=== PATIENT | female | born 1955 ===

== ENCOUNTER 2016-08-03 09:46 | Observation (INO) | payer MEDICAID ==
--- NOTE | 2016-08-03 10:07 | ED PDOC ---
HPI: Chest Pain Time Seen by Provider: 08/03/16 09:57 Chief Complaint (Nursing): Chest Pain Chief Complaint (Provider): Chest Pain History Per: Patient History/Exam Limitations: no limitations Onset/Duration Of Symptoms: Days Current Symptoms Are (Timing): Still Present Severity: Mild Quality: Pressure, "Pain" Associated Symptoms: Dyspnea. denies: Nausea Modifying Factors: None Exacerbating Factors: None Alleviating Factors: None Additional Complaint(s): Patient is a 60 year old female referred to ED from clinic for evaluation of chest pain. Patient states chest pain for 5 days, described as a pressure like pain, constant, worse with walking and associated with SOB. Patient denies nausea, vomiting, radiation of pain, leg swelling or palpations. Past Medical History Reviewed: Historical Data, Nursing Documentation, Vital Signs Vital Signs: Last Vital Signs Temp 98 F 08/03/16 09:54 Pulse 79 08/03/16 09:54 Resp 20 08/03/16 09:54 BP 150/86 08/03/16 09:54 Pulse Ox 98 08/03/16 10:09 - Medical History PMH: Diabetes, HTN, Hypercholesterolemia Denies: HIV, Chronic Kidney Disease - Surgical History Surgical History: No Surg Hx - Family History Family History: States: No Known Family Hx - Living Arrangements Living Arrangements: With Family - Home Medications Home Medications: Ambulatory Orders Medication Instructions Recorded Atorvastatin [Lipitor] 40 mg PO DAILY 01/22/16 Enalapril Maleate [Vasotec] 10 mg PO DAILY 01/22/16 Gabapentin [Neurontin] 300 mg PO TID 01/22/16 Metformin HCl [Glucophage] 1,000 mg PO BID 01/22/16 Omeprazole [Omeprazole] 20 mg PO DAILY 01/22/16 Atorvastatin [Lipitor] 40 mg PO HS #0 tab 01/23/16 Docusate [Colace] 100 mg PO DAILY #0 cap 01/23/16 Insulin Glargine, Recombina 60 unit SC HS #0 unit 01/23/16 [Lantus] Meclizine [Antivert] 25 mg PO TID #42 tab 01/23/16 Omeprazole 40 mg PO DAILY #30 capsule. 01/23/16 Ondansetron [Zofran] 4 mg PO Q8H #42 tab 01/23/16 - Allergies Allergies/Adverse Reactions: Allergies Allergy/AdvReac Type Severity Reaction Status Date / Time No Known Allergies Allergy Verified 01/22/16 06:20 LIS Risk Score for UA/NSTEMI - LIS Risk Score Age > 64: NO 3 or more CAD Risk Factors: YES Known CAD (Stenosis greater than 50%): NO Aspirin use in past 7 days: NO Severe Angina: YES EKG ST changes greater than 0.5mm: NO Positive Cardiac Marker: NO LIS Score: 2 Risk %: 8% Review of Systems ROS Statement: Except As Marked, All Systems Reviewed And Found Negative Constitutional: Negative for: Fever, Chills Cardiovascular: Positive for: Chest Pain. Negative for: Palpitations, Light Headedness Respiratory: Positive for: Shortness of Breath. Negative for: Cough Gastrointestinal: Negative for: Nausea, Vomiting Musculoskeletal: Negative for: Neck Pain Neurological: Negative for: Weakness, Numbness Physical Exam - Reviewed Nursing Documentation Reviewed: Yes Vital Signs Reviewed: Yes - Physical Exam Appears: Positive for: Non-toxic, No Acute Distress Skin: Positive for: Normal Color, Warm Eye Exam: Positive for: Normal appearance Neck: Positive for: Normal, Painless ROM, Supple Cardiovascular/Chest: Positive for: Regular Rate, Rhythm. Negative for: JVD, Murmur Respiratory: Positive for: Normal Breath Sounds. Negative for: Respiratory Distress Back: Positive for: Normal Inspection Extremity: Positive for: Normal ROM. Negative for: Pedal Edema, Calf Tenderness Neurologic/Psych: Positive for: Alert, Oriented. Negative for: Motor/Sensory Deficits - Laboratory Results Result Diagrams: 08/03/16 10:35 08/03/16 10:35 - ECG Interpretation Of ECG: NSR @ 77, no ST-T changes. O2 Sat by Pulse Oximetry: 98 (RA) Pulse Ox Interpretation: Normal - Radiology X-Ray: Read By Radiologist (No evidence of significant interval change compared to the previous exam.) - Progress ED Course And Treament: Pt administered ASA 325 mg PO and Nitropaste. Medical Decision Making Medical Decision Making: Time: 1000 Initial impression: Chest pain r/o ACS Initial plan: -- EKG -- CMP -- Troponin -- CBC -- PT/PTT -- CXR Scribe Attestation: Documented by Loreta Field acting as a scribe for Pamela Woodson MD MD Scribe Attestation: All medical record entries made by the Scribe were at my direction and personally dictated by me. I have reviewed the chart and agree that the record accurately reflects my personal performance of the history, physical exam, medical decision making, and the department course for this patient. I have also personally directed, reviewed, and agree with the discharge instructions and disposition. Disposition - Clinical Impression Clinical Impression: Chest pain - Patient ED Disposition Is Patient to be Admitted: Yes - Disposition Disposition Time: 11:19 Condition: STABLE - Pt Status Changed To: Hospital Disposition Of: Observation - POA Present On Arrival: None
[2016-08-03 10:45] LABS: BASO # 0.1 K/uL (0.0-0.2); BASO % 0.9 % (0.0-2.0); EOS # 0.3 K/uL (0.0-0.7); EOS % 2.7 % (0.0-4.0); HEMATOCRIT 33.9 % (34.0-47.0); LYMPH # 3.8 K/uL (1.0-4.3); MEAN CORPUSCULAR HEMOGLOBIN 24.4 pg (27.0-31.0); MEAN CORPUSCULAR HGB CONC 32.4 g/dL (33.0-37.0); MEAN PLATELET VOLUME 8.1 fl (7.2-11.7); MONO # 0.6 K/uL (0.0-0.8); MONO % 5.8 % (0.0-10.0); NEUT # 6.3 K/uL (1.8-7.0); NEUT % 56.6 % (50.0-75.0); NRBC % 0.1 % (0.0-0.0); WHITE BLOOD COUNT 11.1 K/uL (4.8-10.8)
--- NOTE | 2016-08-03 10:45 | RAD ---
HISTORY: CP COMPARISON: Comparison is made to the previous exam dated 01/22/2016 FINDINGS: LUNGS: No significant interval change in the lungs since the previous study. PLEURA: No significant pleural effusion identified, no pneumothorax apparent. CARDIOVASCULAR: Normal. OSSEOUS STRUCTURES: No significant abnormalities. VISUALIZED UPPER ABDOMEN: Normal. OTHER FINDINGS: None. IMPRESSION: No evidence of significant interval change compared to the previous exam.
[2016-08-03 10:50] LABS: MEAN CELL VOLUME 75.2 fl (81.0-99.0)
[2016-08-03 10:56] LABS: ALB/GLOB RATIO 1.3 (1.0-2.1); ALKALINE PHOSPHATASE 97 U/L (38-126); ALT/SGPT 24 U/L (9-52); AST/SGOT 23 U/L (14-36); BILIRUBIN,TOTAL 0.4 mg/dl (0.2-1.3); CALCIUM 10.1 mg/dL (8.4-10.2); CARBON DIOXIDE 25 mmol/L (22-30); CHLORIDE 103 mmol/L (98-107); GFR AFRICAN-AMERICAN > 60; GLUCOSE,RANDOM 153 mg/dL (65-105); POTASSIUM 4.3 MMOL/L (3.6-5.0); SODIUM 145 mmol/l (132-148); TOTAL PROTEIN 7.7 G/DL (6.3-8.2)
[2016-08-03 11:03] LABS: PARTIAL THROMBOPLASTIN TIME 26.1 SECONDS (23.3-32.5)
[2016-08-03] MEDS ORDERED: Nitroglycerin 2% 1GM UD TOP STA (11:16)
[2016-08-03 11:17] LABS: BLOOD UREA NITROGEN 16 mg/dl (7-17)
[2016-08-03] MEDS ORDERED: Nitroglycerin 2% 1GM UD ONE (11:26)
[2016-08-03] MEDS ORDERED: Glucagon Recombinant 1 mg Inj IM PRN (13:06)
[2016-08-03] MEDS ORDERED: Dextrose 50% SYRINGE Inj (50 ml) IV PRN (13:06)
--- NOTE | 2016-08-03 13:08 | CP.PCM.HP ---
History of Present Illness - History of Present Illness History of Present Illness: 60 year old female with a history of HTN and DM II presenting from the [facility] for evaluation of chest pain. Patient reports exertional chest pain, substernal, no radiation, 6/10 at it's worst, squeezing in nature. Abated with rest. Has not attempted ASA or Nitro for pain relief. No shortness of breath, diaphoresis, palpitations. Denies syncope, presyncope. Denies headache, changes in vision or new focal deficits. Scheduled for an outpatient stress test on the 09 of August. Present on Admission - Present on Admission Any Indicators Present on Admission: No Review of Systems - Review of Systems Review of Systems: As per HPI. Past Patient History - Infectious Disease Hx of Infectious Diseases: None - Past Medical History & Family History Past Medical History?: Yes - Past Social History Smoking Status: Former Smoker - CARDIAC Hx Hypercholesterolemia: Yes Hx Hypertension: Yes - PULMONARY Hx Respiratory Disorders: No - NEUROLOGICAL Hx Neurological Disorder: No - HEENT Hx HEENT Problems: No - RENAL Hx Chronic Kidney Disease: No - ENDOCRINE/METABOLIC Hx Endocrine Disorders: Yes Hx Diabetes Mellitus Type 2: Yes - HEMATOLOGICAL/ONCOLOGICAL Hx Human Immunodeficiency Virus (HIV): No - INTEGUMENTARY Hx Dermatological Problems: No - MUSCULOSKELETAL/RHEUMATOLOGICAL Hx Musculoskeletal Disorders: No - GASTROINTESTINAL Hx Gastrointestinal Disorders: No - GENITOURINARY/GYNECOLOGICAL Hx Genitourinary Disorders: No - PSYCHIATRIC Hx Psychophysiologic Disorder: No Hx Substance Use: No - SURGICAL HISTORY Hx Surgeries: No - ANESTHESIA Hx Anesthesia: Yes Hx Anesthesia Reactions: No Hx Malignant Hyperthermia: No Meds Allergies/Adverse Reactions: Allergies Allergy/AdvReac Type Severity Reaction Status Date / Time No Known Allergies Allergy Verified 01/22/16 06:20 Physical Exam - Head Exam Head Exam: ATRAUMATIC, NORMAL INSPECTION - Eye Exam Eye Exam: EOMI, Normal appearance - ENT Exam ENT Exam: Mucous Membranes Moist - Neck Exam Neck exam: Positive for: Normal Inspection - Respiratory Exam Respiratory Exam: Chest Wall Tenderness, NORMAL BREATHING PATTERN. absent: Rales, Rhonchi, Wheezes - Cardiovascular Exam Cardiovascular Exam: REGULAR RHYTHM, RRR, +S1, +S2. absent: Tachycardia, Diastolic murmur, Systolic Murmur - GI/Abdominal Exam GI & Abdominal Exam: Normal Bowel Sounds, Soft. absent: Distended, Tenderness - Extremities Exam Extremities exam: Positive for: normal inspection, pedal pulses present. Negative for: pedal edema, tenderness - Neurological Exam Neurological exam: Alert, CN II-XII Intact Results - Vital Signs Recent Vital Signs: Last Vital Signs Temp 97.9 F 08/03/16 11:43 Pulse 73 08/03/16 11:43 Resp 20 08/03/16 11:43 BP 153/87 H 08/03/16 11:43 Pulse Ox 100 08/03/16 11:43 - Labs Result Diagrams: 08/03/16 10:35 08/03/16 10:35 Assessment & Plan - Assessment and Plan (Free Text) Plan: 1. Chest pain Evaluation for ACS Etiology likely multifactorial- MSK and Cardiac EKG- grossly normal, NSR CXR- no acute evidence of pulmonary Pathology Trop x3- 1st negative; 2 pending. ASA Lipid Panel PENDING 2. DM II, hyperglycemia Insulin Sliding Scale Heart Hearty Diet AccuChecks 3. HTN, controlled Continue home medication
[2016-08-03] MEDS ORDERED: Insulin Detemir 100 Units/ml Inj SC SCH (22:00)
[2016-08-03] MEDS: Insulin Regular 100 units/ml SC SCH (22:14)
[2016-08-03 23:59] VITALS: RESP 18
[2016-08-04] MEDS: Insulin Regular 100 units/ml SC SCH ×2 (06:33→12:15)
--- NOTE | 2016-08-04 07:10 | CARD ---
APPROVED REPORT EKG Measurement Heart [id number] <Conclusion> Normal sinus rhythm Normal ECG
[2016-08-04 08:13] LABS: TROPONIN I 0.017 ng/mL (0.00-0.120)
[2016-08-04] MEDS ORDERED: Famotidine 40 MG/5 ML PO STA (10:43)
[2016-08-04 11:25] LABS: HEMATOCRIT 33.6 % (34.0-47.0); MEAN CELL VOLUME 76.2 fl (81.0-99.0); MEAN CORPUSCULAR HEMOGLOBIN 24.3 pg (27.0-31.0); MEAN CORPUSCULAR HGB CONC 31.8 g/dL (33.0-37.0)
--- NOTE | 2016-08-04 12:52 | CARD ---
APPROVED REPORT EKG Measurement Heart [id number] <Conclusion> Normal sinus rhythm Normal ECG
--- NOTE | 2016-08-04 13:53 | CP.PCM.DIS ---
Provider - Provider Date of Admission: 08/03/16 11:17 Attending physician: Raquel Hernandez MD Time Spent in preparation of Discharge (in minutes): 45 Diagnosis - Discharge Diagnosis (1) Chest pain Status: Acute Hospital Course - Lab Results Lab Results: Most Recent Lab Values WBC 12.0 K/uL (4.8-10.8) H 08/04/16 11:20 RBC 4.41 Mil/uL (3.80-5.20) 08/04/16 11:20 Hgb 10.7 g/dL (12.0-16.0) L 08/04/16 11:20 Hct 33.6 % (34.0-47.0) L 08/04/16 11:20 MCV 76.2 fl (81.0-99.0) L 08/04/16 11:20 MCH 24.3 pg (27.0-31.0) L 08/04/16 11:20 MCHC 31.8 g/dL (33.0-37.0) L 08/04/16 11:20 RDW 16.0 % (11.5-14.5) H 08/04/16 11:20 Plt Count 394 K/uL (130-400) 08/04/16 11:20 MPV 8.1 fl (7.2-11.7) 08/03/16 10:35 Neut % (Auto) 56.6 % (50.0-75.0) 08/03/16 10:35 Lymph % (Auto) 34.0 % (20.0-40.0) 08/03/16 10:35 Cook % (Auto) 5.8 % (0.0-10.0) 08/03/16 10:35 Eos % (Auto) 2.7 % (0.0-4.0) 08/03/16 10:35 Baso % (Auto) 0.9 % (0.0-2.0) 08/03/16 10:35 Neut # 6.3 K/uL (1.8-7.0) 08/03/16 10:35 Lymph # 3.8 K/uL (1.0-4.3) 08/03/16 10:35 Cook # 0.6 K/uL (0.0-0.8) 08/03/16 10:35 Eos # 0.3 K/uL (0.0-0.7) 08/03/16 10:35 Baso # 0.1 K/uL (0.0-0.2) 08/03/16 10:35 PT 10.7 SECONDS (9.6-11.2) 08/03/16 10:35 INR 1.03 (0.92-1.08) 08/03/16 10:35 APTT 26.1 SECONDS (23.3-32.5) 08/03/16 10:35 Sodium 145 mmol/l (132-148) 08/03/16 10:35 Potassium 4.3 MMOL/L (3.6-5.0) 08/03/16 10:35 Chloride 103 mmol/L (98-107) 08/03/16 10:35 Carbon Dioxide 25 mmol/L (22-30) 08/03/16 10:35 Anion Gap 21 (10-20) H 08/03/16 10:35 BUN 16 mg/dl (7-17) 08/03/16 10:35 Creatinine 0.6 mg/dL (0.7-1.2) L 08/03/16 10:35 Est GFR ( Amer) > 60 08/03/16 10:35 Est GFR (Non-Af Amer) > 60 08/03/16 10:35 POC Glucose (mg/dL) 201 mg/dL (65-110) H 08/04/16 11:09 Random Glucose 153 mg/dL (65-105) H 08/03/16 10:35 Calcium 10.1 mg/dL (8.4-10.2) 08/03/16 10:35 Total Bilirubin 0.4 mg/dl (0.2-1.3) 08/03/16 10:35 AST 23 U/L (14-36) 08/03/16 10:35 ALT 24 U/L (9-52) 08/03/16 10:35 Alkaline Phosphatase 97 U/L (38-126) 08/03/16 10:35 Troponin I 0.0170 ng/mL (0.00-0.120) 08/04/16 06:00 Total Protein 7.7 G/DL (6.3-8.2) 08/03/16 10:35 Albumin 4.4 g/dL (3.5-5.0) 08/03/16 10:35 Globulin 3.3 gm/dL (2.2-3.9) 08/03/16 10:35 Albumin/Globulin Ratio 1.3 (1.0-2.1) 08/03/16 10:35 Triglycerides 130 mg/DL (0-149) 08/04/16 06:00 Cholesterol 140 mg/dL (0-199) 08/04/16 06:00 LDL Cholesterol Direct 84 mg/dL (0-129) 08/04/16 06:00 HDL Cholesterol 31 MG/DL (30-70) 08/04/16 06:00 - Hospital Course Hospital Course: 60 year old female with a history of HTN presenting for evaluation of chest pain. ACS was investigated. EKG, Troponins and CXRs in correlation with serial physical examination were all reassuring. Patient does give a history of convincing chest pain in relation to exertion. Will benefit from outpatient stress test as outpatient. She is scheduled for the stress test on 08/09/16. Follow up at [facility] with Dr. Fan Arboleda. Discharge Exam - Head Exam Head Exam: ATRAUMATIC, NORMAL INSPECTION - Eye Exam Eye Exam: EOMI, Normal appearance - Respiratory Exam Respiratory Exam: NORMAL BREATHING PATTERN. absent: Rales, Rhonchi, Wheezes - GI/Abdominal Exam GI & Abdominal Exam: Soft. absent: Distended, Tenderness - Neurological Exam Neurological exam: Alert, CN II-XII Intact, Normal Gait, Oriented x3 Discharge Plan - Follow Up Plan Condition: STABLE Disposition: HOME/ ROUTINE Instructions: Chest Pain (DC) Additional Instructions: Activity as tolerated. heart healthy low fat, low cholesterol w/ moderate carbohydrate diet. Referrals: Isela Arboleda MD [Resident] -
[2016-08-04 16:49] VITALS: BP 112/67; PULSE 86; TEMP 97.6; O2SAT 97
== END 2016-08-04 17:00 | disposition home or self-care (01) ==
LOC: H.ER 09:46 → H.ERHOLD 11:17 → H.TEL 15:51
PROVIDERS: ADMIT Family Medicine Geriatric Medicine; ATTEND Family Medicine Geriatric Medicine
DX: R07.9 Chest pain, unspecified (principal); I10 Essential (primary) hypertension; E78.00 Pure hypercholesterolemia, unspecified; E11.65 Type 2 diabetes mellitus with hyperglycemia